=== PATIENT | male | born 1980 | race Caucasian/White ===

== ENCOUNTER 2022-06-03 05:40 | Day surgery (SDC) | payer OTHER ==
[~2022-06-03] VITALS: Ht 188 cm; Wt 100.0 kg
[~2022-06-03 05:40] MED LIST: CRESTOR5 MG PO; MELOXICAM7.5 MG PO; PROZAC20 MG PO; REMERON45 M1 PO
[2022-06-03] MEDS ORDERED: IBUPROFEN200 M1 PO (06:13)
--- NOTE | 2022-06-03 08:17 | NUR ---
06/03/22 0817 Shelia Nieves 0806 PT ARRIVED IN PACU SLEEPY WITH NO C/O'S. TRANSPORT GUARD AT BEDSIDE. 0817 TALKING WITH STAFF. NO C/O'S.
[2022-06-03] MEDS ORDERED: IBUPROFEN600 MG PO (08:20)
[2022-06-03] MEDS ORDERED: ACETAMINOPHEN500 MG PO (08:20)
[2022-06-03] MEDS ORDERED: HYDROCODON-ACE1 EA10 PO (08:20)
--- NOTE | 2022-06-03 17:43 | OR ---
[facility] [address], [place] [address] Signed DATE OF OPERATION: 06/03/2022 SURGEON: Dot Fry MD PREOPERATIVE DIAGNOSIS: Left lateral grade 4 hemorrhoid (symptomatic). POSTOPERATIVE DIAGNOSIS: Left lateral grade 4 hemorrhoid (symptomatic). PROCEDURE: Excision of left lateral grade 4 hemorrhoid. ANESTHESIA: Spinal anesthetic, Kai Bowles CRNA and local 4 mL of 0.25% Marcaine with epinephrine. INDICATION: This 42-year-old white man is a prisoner at [facility] and a patient of Meli Escalante. 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 The plan for external hemorrhoidectomy was outlined previously, but given the pandemic, this plan was never completed. He has occasional rectal bleeding for which colonoscopy has been recommended. At this point, we have recommended excision of the left lateral hemorrhoid as well as colonoscopy once healing has occurred. The risk of bleeding, infection, variable degrees of anal incontinence and so forth have all been reviewed with him regarding hemorrhoidectomy. He understands and wished to proceed. FINDINGS: A unilateral left lateral grade 4 hemorrhoid was noted. Complete excision was undertaken without problem. There is no evidence of malignancy. Blood loss was minimal. DESCRIPTION OF PROCEDURE: The patient was given a saddle block anesthetic and placed in the prone jose-knife position with the buttocks taped apart. Preoperative antibiotic cefoxitin was given and bowel prep had been given as well. The perineum was clipped and prepared with a Betadine based solution and draped sterilely. A Leggett clamp was used to elevate the left lateral external portion of the hemorrhoid. Excision was undertaken with electrocautery approximately to completely excise the hemorrhoid. Essentially no blood loss occurred. The open wound was closed with three interrupted 2-0 chromic sutures and Electronically Signed By: DOT FRY MD 06/03/22 1743 PATIENT NAME: OMAR FLYNN OPERATIVE REPORT DATE OF : 84 REPORT #: [id number] PHYSICIAN: DOT FRY MD PCP: MELI ESCALANTE REPORT IS CONFIDENTIAL AND NOT TO BE RELEASED WITHOUT AUTHORIZATION [address] [address] Signed 4 mL of 0.25% Marcaine with epinephrine was injected locally. A peripad was applied. He was returned to the supine position and taken to the recovery room in good condition. Blood loss was minimal. MD ELIZ Wallace/DONALD /[id number] cc: GUIDO Molina Copies: MELI ESCALANTE ~ Electronically Signed By: DOT FRY MD 06/03/22 1743 PATIENT NAME: OMAR FLYNN OPERATIVE REPORT DATE OF : 84 REPORT #: [id number] PHYSICIAN: DOT RFY MD PCP: MELI ESCALANTE REPORT IS CONFIDENTIAL AND NOT TO BE RELEASED WITHOUT AUTHORIZATION
== END 2022-06-03 08:44 | disposition home or self-care (01) ==
LOC: DS 05:40
PROVIDERS: ATTEND Surgery
PROC: 0JR Subcutaneous Tissue and Fascia, Replacement (ICD-10-PCS; principal; 2022-06-03 07:30)
DX: K64.4 Residual hemorrhoidal skin tags (principal); K21.9 Gastro-esophageal reflux disease without esophagitis; R06.83 Snoring
CPT/HCPCS: J0690; J1644; J2001; J2250; J2405; J2704; J3010; J7121